=== PATIENT | male | born 1955 | race Caucasian/White ===

== ENCOUNTER 2023-06-24 14:46 | Outpatient (CLI) | payer MEDICARE ==
[2023-06-24 17:06] LABS: Hematocrit 37.9 % (38.8-50.0); Hemoglobin 12.6 g/dL (13.5-17.5)
[2023-06-24 17:12] LABS: Anion Gap 12 mmol/L (10-20); BUN (Urea Nitrogen) 19 mg/dL (8.4-25.7); Calc. Creatinine Clearance 0 mL/min (70-130); Calcium 8.9 mg/dL (7.8-10.44); Carbon Dioxide 27 mmol/L (23-31); Chloride 104 mmol/L (98-107); Estimated GFR 80; Glucose 159 mg/dL (80-115); Potassium 4.4 mmol/L (3.5-5.1); Sodium 139 mmol/L (136-145)
== END 2023-06-24 14:47 | disposition home or self-care (01) ==
LOC: CSHLAB 14:46
PROVIDERS: ATTEND Otolaryngology Otolaryngic Allergy
DX: Z01.818 Encounter for other preprocedural examination (principal); G47.33 Obstructive sleep apnea (adult) (pediatric)
CPT/HCPCS: 80048; 85014; 85018; 93005; 93010

== ENCOUNTER 2023-06-29 08:29 | Day surgery (SDC) | payer MEDICARE, OTHER ==
[2023-06-24 16:26] VITALS: BMI 32.8
[2023-06-29] MEDS ORDERED: Oxymetazoline HCl 0.05% ( 15 ML ) ONE (08:38)
[2023-06-29] MEDS ORDERED: Fentanyl 250 MCG/5 ML VIAL ONE (10:36)
[2023-06-29] MEDS ORDERED: Lidocaine 1% PF 5 ML VIAL ONE (10:36)
[2023-06-29] MEDS ORDERED: Dexamethasone 20 MG/5 ML VIAL ONE (10:36)
[2023-06-29] MEDS ORDERED: Midazolam HCl 2 mg/2 ml Vial ONE (10:36)
[2023-06-29] MEDS ORDERED: Ondansetron PF 4 MG/2 ML Vial ONE (10:36)
[2023-06-29] MEDS ORDERED: PROPOFOL 0 ML ONE (10:36)
[2023-06-29] MEDS ORDERED: Rocuronium Bromide 10 MG/ML (10ML VIAL) ONE (10:36)
[2023-06-29] MEDS ORDERED: PROPOFOL 20 ML ONE (10:37)
[2023-06-29] MEDS ORDERED: CEFAZOLIN 2 GM VIAL ONE (10:51)
[2023-06-29] MEDS ORDERED: Lidocaine 1% w/Epinephrine 1:100K 20 ML VIAL ONE (11:34)
[2023-06-29] MEDS ORDERED: Vancomycin 1 GM VIAL ONE (12:11)
[2023-06-29] MEDS ORDERED: HYDROcodone/Acetaminophen 5/325 mg Tablet ONE (14:16)
== END 2023-06-29 15:00 | disposition home or self-care (01) ==
LOC: CSHSDC 08:29
PROVIDERS: ATTEND Otolaryngology Otolaryngic Allergy
PROC: [UNRECOGNIZED PROCEDURE] (principal; 2023-06-29)
DX: G47.33 Obstructive sleep apnea (adult) (pediatric) (principal); I10 Essential (primary) hypertension; E11.9 Type 2 diabetes mellitus without complications; Z79.899 Other long term (current) drug therapy; Z68.34 Body mass index [BMI] 34.0-34.9, adult
CPT/HCPCS: 42975; 64582; 71045; C1820; C1898; C1787; J1100; J2250; J2405; J2704; J3010; J3370